=== PATIENT | female | born 1980 | race Caucasian/White ===

== ENCOUNTER → 2018-03-09 22:40 | Outpatient (CLI) | payer OTHER, SELFPAY ==
[2018-03-09 23:04] LABS: Follicle Stimulating Hormone 4.2 mIU/mL; Free T3 2.7 pg/mL (2.18-3.98); Luteinizing Hormone 5.2 mIU/mL; T4 Free Direct 1.06 ng/dL (0.76-1.46); Thyroid Stim Hormone (TSH) 1.25 uIU/mL (0.358-3.74)
[2018-03-11 10:23] LABS: Thyroid Peroxidase AB 6 IU/mL (0-34)
== END ==
PROVIDERS: Referring Provider Nurse Practitioner; Visit Provider Nurse Practitioner
DX: R00.2 Palpitations (principal); R63.4 Abnormal weight loss; F41.9 Anxiety disorder, unspecified; N92.1 Excessive and frequent menstruation with irregular cycle
CPT/HCPCS: 83001; 83002; 84439; 84443; 84481; 86376

== ENCOUNTER → 2018-05-12 00:29 | Outpatient (CLI) | payer OTHER, SELFPAY ==
[2018-05-12 19:43] VITALS: BMI 18.7
--- OUTSIDE RECORDS SUMMARY | 2018-07-17 20:40 | XMS RPT_ITS ---
:1980 Author Organization OHIP Care Team Providers Name Role Phone Roger Pegueroa [employer] MACHINE TENDER-C Attending Unavailable Roger Pegueroa [employer]ING MACHINE TENDER-C Referring Unavailable Josh Fernandez Attending Unavailable Sudhir, Luanne [employer] H[employer]MING MACHINE TENDER-C Referring Unavailable Peguero, Luanne [employer] H[employer]ING MACHINE TENDER-C Attending Unavailable Peguero, Luanne [employer] HAT [employer]ING MACHINE TENDER-C Referring Unavailable Dr. Chapin Cespedes Admitting Unavailable Dr. Chapin Cespedes Attending Unavailable *SELF, REFERRED Referring Unavailable Peguero, Ms. Luanne L Primary Care Unavailable Dr. Chapin Cespedes Admitting Unavailable Dr. Chapin Cespedes Attending Unavailable UNKNOWN, PCP Referring Unavailable Peguero, Ms. Luanne L Primary Care Unavailable Dr. Chapin Cespedes Admitting Unavailable Dr. Chapin Cespedes Attending Unavailable Dr. Chapin Cespedes Referring Unavailable Peguero, Ms. Luanne L Primary Care Unavailable Dr. Chapin Cespedes Attending Unavailable Dr. Chapin Cespedes Referring Unavailable Peguero, Ms. Luanne L Primary Care Unavailable Dr. Chapin Cespedes Admitting Unavailable Dr. Chapin Cespedes Attending Unavailable Dr. Chapin Cespedes Referring Unavailable Peguero, Ms. Luanne L Primary Care Unavailable Dr. Jamar Lee Admitting Unavailable Dr. Jamar Leed Attending Unavailable Rubina, Dr. Samson Referring Unavailable Peguero, Ms. Luanne L Primary Care Unavailable Sherry, Dr. Bal Benedict Attending Unavailable UNKNOWN, PCP Referring Unavailable Peguero, Ms. Luanne L Primary Care Unavailable Alin, Dr. Jamar Hatfield Attending Unavailable Alin, Dr. Jamar Hatfield Referring Unavailable Peguero, Ms. Luanne L Primary Care Unavailable Jemima, Dr. Henrique Hargrove Attending Unavailable *SELF, REFERRED Referring Unavailable Peguero, Ms. Luanne L Primary Care Unavailable Alin, Dr. Jamar Hatfield Attending Unavailable Sleik, Dr. Jamar Hatfield Referring Unavailable Peguero, Ms. Luanne L Primary Care Unavailable Alin, Dr. Jamar Hatfield Attending Unavailable Peguero, Ms. Luanne L Primary Care Unavailable PROBLEMS PROBLEMS DATE TYPE CONDITION / CODE ATTENDING STATUS SOURCE 05/13/2018 Unknown R31.9 - Hematuria, Peguero, Active [place] unspecified / Luanne [employer] T[employer] Community R31.9(ICD-10) Hospital Repository 03/10/2018 Unknown R00.2 - Peguero, Active [place] Palpitations / Luanne [employer]INE TENDER-[employer] Community R00.2(ICD-10) Hospital Repository 03/10/2018 Unknown R63.4 - Abnormal Peguero, Active [place] weight loss / Luanne [employer]INE T[employer] Community R63.4(ICD-10) Hospital Repository 03/10/2018 Unknown F41.9 - Anxiety Peguero, Active [place] disorder, Luanne [employer] MACHINE TENDER-C Community unspecified / Hospital F41.9(ICD-10) Repository 03/10/2018 Unknown N92.1 - Excessive Peguero, Active [place] and frequent Luanne [employer] M[employer]INE TENDER-C Community menstruation with Hospital irregular cycle / Repository N92.1(ICD-10) 02/03/2018 Final diagnosis Tachycardia, Dr. Jada Lee [place] (discharge) unspecified / Jamar Hatfield [facility] R00.0(ICD-10) Repository 01/28/2018 Final diagnosis Palpitations / [place], Dr. Duenas Replaced By [facility] (discharge) R00.2(ICD-10) [facility] Repository 06/16/2017 Active Palpitations / NA Active [place] R00.2(ICD-10) Clinic Other [place] Repository PROCEDURES PROCEDURES No Procedure Records FoundRESULTS RESULTS OFFICE VISIT Observed: 05/12/2018 Status: F Source: [place] 8:47 PM [facility] REPOSITORY [facility] [address] [place] [address] OFFICE VISIT Date of Service: 05/12/18 MR#: [id number] Acct: [id number] Name: ACACIA ALVARENGA Rep #: [id number] : 1980 Provider: JACINTO Peguero Age/Sex: 38/F Location: [facility] Status: Signed Intake Vital Signs05/12/18 Height 5 ft 6 in 05/12/18 Weight: 116 lb Intake Visit Reasons: BLOOD IN URINE Allergies amoxicillin Allergy (Severe, Verified 04/25/18 11:19) rash hives progesterone Allergy (Intermediate, Verified 03/09/18 17:00) rash Medications escitalopram 20 mg tablet 20 mg PO DAILY #30 tab 03/09/18 [Rx Confirmed 03/09/18] ciprofloxacin 500 mg tablet 500 mg PO BID #14 tab 04/25/18 [Rx Confirmed 04/25/18] propranolol 40 mg tablet 40 mg PO BID #60 tab 04/25/18 [Rx Confirmed 04/25/18] sulfamethoxazole 800 mg-trimethoprim 160 mg tablet 1 tab PO BID 10 Days #20 tab 05/12/18 [Rx] tamsulosin 0.4 mg capsule 0.4 mg PO DAILY #30 cap 05/12/18 [Rx] PFSH Medical History Metrorrhagia (Chronic) Anxiety disorder (Chronic) Palpitations (Acute) Menses, irregular (Acute) chronic ear wax (Acute) Family History Grandfather CAD (coronary artery disease) Grandmother Breast cancer Diabetes Aunt CAD (coronary artery disease) Other Anxiety Heart disease High cholesterol Hypertension Thyroid disorder Social History Smoking Status: Never smoker HPI HPI (General) HPI HPI: ACACIA ALVARENGA, is a 38 F who presents to the office today for urgency frequency and jermaine blood in her urine starting today at work . We have treated her about 2 weeks ago for a UTI and she c/o the Cipro did not help still has it. So we called in another antibiotic of Keflex. this still did not help She c/o had a menstrual cycle that was a gusher that is very unusual and then it finished abruptly . Today at work just started urinating like pink lemonade. she Guzzled 20 0z of water before her arrival here.She also states has been getting up 2 times a night to urinate and in the morning having severe pain across her abd. She is tender in the suprapubic area without CVA tenderness ROS Genitourinary: Positive for burning urination, painful urination, difficulty urinating, urinary frequency, Frequent nighttime urination/ nocturia, abnormal periods and heavy periods Musc Musculoskeletal: Positive for back pain (lower back pain) Exam Const Constitutional: Yes cooperative, Yes healthy appearing Orientation: Yes alert and awake Resp Effort AND Inspection: Yes normal respiratory effort Auscultation: Yes clear to auscultation bilaterally Cardio Palpitation: Yes normal PMI Rate: Yes regular rate Rhythm: Yes regular rhythm GI Inspection: Yes normal to inspection Auscultation: Yes normal bowel sounds Palpation: Yes soft, guarding (suprapubic area) and tender Skin General: no rashes or lesions noted Lesions: Yes no lesions Extrem General: Yes normal to inspection Neuro General: Yes alert Psych Appearance: Positive grossly normal Mood: Positive congruent mood Affect: Positive normal affect Assessment AND Plan Problems 1. Kidney stone N20.0 2. Frequency of urination R35.0 3. Hematuria, unspecified type R31.9 Patient Instructions TAke the antibiotics till gone push the fluids Get the x-ray done KUB ALAN Take the flomax once a day for 30 days or till we make a diagnosis Will call with the results Orders Orders: Coding Level of Care Code Off vis,est,level 3 Diagnoses Kidney stone N20.0 Frequency of urination R35.0 Hematuria, unspecified type R31.9 Hematuria type: unspecified type 05/12/182046 <Electronically signed by Luanne CALIX> Date Luanne CALIX CC: Observed: 05/12/2018 Status: F Source: [place] EDMOND, URINE 8:00 PM [facility] REPOSITORY Urine Culture There are no CLSI standards for interpretation of this Drug/Organism combination. ORGANISM 1: Lactobacillus species Wallace Count 25,000-50,000 Performed By: #### M100.0650 #### [facility] [address] [place], [address] OFFICE VISIT Observed: 04/28/2018 Status: F Source: [place] 12:45 PM [facility] REPOSITORY [facility] [address] [place] [address] OFFICE VISIT Date of Service: 04/25/18 MR#: [id number] Acct: [id number] Name: ACACIA ALVARENGA Rep #: [id number] : 1980 Provider: JACINTO Peguero Age/Sex: 38/F Location: [facility] Status: Signed Intake Vital Signs04/25/18 Height 5 ft 6 in 04/25/18 Weight: 114 lb Intake Visit Reasons: BLADDER INFECTION Accompanied by: self Allergies amoxicillin Allergy (Severe, Verified 04/25/18 11:19) rash hives progesterone Allergy (Intermediate, Verified 03/09/18 17:00) rash Medications escitalopram 20 mg tablet 20 mg PO DAILY #30 tab 03/09/18 [Rx Confirmed 03/09/18] ciprofloxacin 500 mg tablet 500 mg PO BID #14 tab 04/25/18 [Rx Confirmed 04/25/18] propranolol 40 mg tablet 40 mg PO BID #60 tab 04/25/18 [Rx Confirmed 04/25/18] PFSH Medical History Metrorrhagia (Chronic) Anxiety disorder (Chronic) Palpitations (Acute) Menses, irregular (Acute) chronic ear wax (Acute) Family History Grandfather CAD (coronary artery disease) Grandmother Breast cancer Diabetes Aunt CAD (coronary artery disease) Other Anxiety Heart disease High cholesterol Hypertension Thyroid disorder Social History Smoking Status: Never smoker HPI HPI (General) HPI HPI: ACACIA ALVARENGA, is a 38 F who presents to the office today for FREQUENCY AND PRESSURE WITH URINATION . Also wants the propanol re-ordered the 40 bid is working great very happy . not having the palpitations any more and helping with her anxiety. ROS Genitourinary: Positive for urinary frequency, urinary urgency and painful urination (more pressure) Exam Const Constitutional: Yes cooperative, Yes healthy appearing Orientation: Yes alert and awake Resp Effort AND Inspection: Yes normal respiratory effort Auscultation: Yes clear to auscultation bilaterally Cardio Palpitation: Yes normal PMI Rate: Yes regular rate Rhythm: Yes regular rhythm GI Inspection: Yes normal to inspection Auscultation: Yes normal bowel sounds Percussion: Yes normal to percussion Palpation: Yes soft, no hepatosplenomegaly and tender (suprapubic pressure) Skin General: no rashes or lesions noted Lesions: Yes no lesions Extrem General: Yes normal to inspection Neuro General: Yes alert Psych Appearance: Positive grossly normal Mood: Positive congruent mood Affect: Positive normal affect Results [facility] Office Urine Color Roula Last Edit by FIFI Lainez on 04/25/18 11:31 Assessment AND Plan Problems 1. Cystitis N30.90 2. Frequency of urination R35.0 3. Breast cancer screening by mammogram Z12.31 4. Palpitations R00.2 Patient Instructions Take the antibiotics till gone Push the fluids and follow up as needed Continue the propranolol for the anxiety and the palpitations Orders Orders: Medications New: Refilled: Discontinued: Coding Level of Care Code Off vis,est,level 3 Diagnoses Cystitis N30.90 Frequency of urination R35.0 Breast cancer screening by mammogram Z12.31 Palpitations R00.2 04/28/18 1245 <Electronically signed by Luanne CALIX> Date Luanne CALIX CC: OFFICE VISIT Observed: 03/10/2018 Status: F Source: [place] 1:30 PM [facility] After [facility] [address] [place] [address] OFFICE VISIT Date of Service: 03/09/18 MR#: [id number] Acct: [id number] Name: ACACIA ALVARENGA Rep #: [id number] : 1980 Provider: JACINTO Peguero Age/Sex: 37/F Location: [facility] Status: Signed Intake Vital Signs03/09/18 Height 5 ft 6 in 03/09/18 Weight: 118 lb Intake Visit Reasons: RX REFILL/ CHANGE Allergies progesterone Allergy (Intermediate, Verified 03/09/18 17:00) rash Medications alprazolam 0.5 mg tablet 0.5 mg PO .COMPLEX 08/18/17 [History Confirmed 08/18/17] escitalopram 20 mg tablet 20 mg PO DAILY #30 tab 03/09/18 [Rx Confirmed 03/09/18] propranolol 40 mg tablet 40 mg PO BID #60 tab 03/09/18 [Rx Confirmed 03/09/18] PFSH Medical History Metrorrhagia (Chronic) Anxiety disorder (Chronic) Palpitations (Acute) Menses, irregular (Acute) chronic ear wax (Acute) Family History Grandfather CAD (coronary artery disease) Grandmother Breast cancer Diabetes Aunt CAD (coronary artery disease) Other Anxiety Heart disease High cholesterol Hypertension Thyroid disorder Social History Smoking Status: Never smoker HPI HPI (General) HPI HPI: ACACIA ALVARENGA, is a 37 F who presents to the office today for continued palpitation even though on her halter monitor showed many pac in [address]. [address] told her the pills are not working and to wean off . He told her lots of people have this and get used to it basically . But it really bothers her and she cannot function on the days it is out of control. Saw Dr Villarreal about her hormones because the palpitations are definitely worse near her menses that are getting worse also. He wants her on hormone pills but she broke out in a rash from the progesterone had a biopsy done at [facility] and she told her to get off of them. He disagrees and states not the hormones causing the rash. She is very fustreated and not sure what to do suggested trying another beta bloker to see if helps and get some hormone labs and recheck her thyroid. She c/o losing weight but she does suffer from anxiety. ROS Const Constitutional: No anorexia, body ache, chills, excessive sweating, fatigue, fever(s), frequent falls, headache(s), decreased energy, malaise, night sweats, snoring, weakness, weight change, sleep problems, abnormal sleep pattern, change in appetite or other Eyes Eyes: No blurry vision, change in vision, double vision, discharge, dry eyes, bulging eyes, floaters, visual disturbances, eye pain, light sensitivity, spots in vision, tunnel vision or other ENT ENT: No headache(s), abnormal hearing, ear pain, ear discharge, ear pressure, hearing loss, tinnitus, dizziness/vertigo, balance problems, nosebleed/epistaxis, nasal congestion, nasal obstruction, nose pain, sinus pressure, sinus pain, nasal discharge, post nasal drip, facial pain, dental pain, dry mouth, difficulty swallowing, bad breath, hoarseness, lip swelling, mouth lesions, mouth pain, neck pain, sore throat, tongue swelling, throat swelling or other Resp Respiratory: No snoring, cough, change in phlegm color, chest congestion, excessive phlegm production, hemoptysis, pain on inspiration, shortness of breath, pain with cough, stridor, wheezing or other Cardio Cardiology: Positive for palpitations; no excessive sweating, chest pain at rest, chest pain with exertion, leg pain with exertion, shortness of breath, dyspnea on exertion, generalized swelling, irregular heart rhythm, lightheadedness, orthopnea, radiating jaw, neck or arm pain, fast heart rate, slow heart rate or other Gastro GI: No other, No Difficulty Swallowing, No abdominal pain, No belching, No bloating, No change in bowel habits, No change in stool character, No coffee ground emesis, No constipation, No cramping, No diarrhea, No heartburn, No feeling full early, No excessive flatus, No incontinent of stools, No Vomiting blood/hematemesis, No Blood in stool, No loose stools, No Black,tarry stools, No nausea/dyspepsia, No pain with swallowing, No vomiting, No hemorrhoids, No rectal pain Genitourinary: No urinary frequency, difficulty urinating, burning urination, painful urination, urinary urgency or blood in urine Musc Musculoskeletal: No neck pain, abnormal walking, joint pain, back pain, deformity, joint swelling, limited range of motion, loss of height, muscle cramps, muscle weakness, decreased muscle mass, body aches, numbness, radiating pain into limb, stiffness, tingling or other Skin Skin: No acne, hair loss, change in hair, nail changes, boil, change in skin color, dry skin, redness, excessive hair growth, yellowing of the skin, lesions, itching, rash, skin pain, skin ulcer, sores, skin swelling, wounds or other Breast Breast: No other Neuro Neurology: No frequent falls, headache(s), weakness, visual disturbances, abnormal hearing, abnormal walking, numbness, tingling, abnormal movements, abnormal speech, behavioral changes, confusion, unsteady gait/balance, dizziness, lack of coordination, loss of vision, memory loss, restless legs, fainting, tremor(s) or other Psych Psychiatric: No abnormal sleep pattern, No change in appetite, No behavioral changes, No confusion, No memory loss, No lack of enjoyment, Positive for anxiety, No depression, No difficulty concentrating, No hopelessness, No irritability, No mood swings, No panic attacks, No paranoia, No Thoughts of harming yourself/Others, No hallucinations, No other Endo Endo: No excessive sweating, No fatigue, No other Aller/Imm Allergy/Immunologic: No lip swelling, tongue swelling, throat swelling, wheezing or itchy eyes Exam Const Constitutional: Yes cooperative, Yes healthy appearing Orientation: Yes alert, awake and oriented x3 HENMT Head: Yes normocephalic Ear: Yes hearing grossly normal bilaterally Neck Neck: normal visual inspection Thyroid: thyroid normal Eyes General: Yes appearance normal, both eyes and all related structures Chest Chest palpation AND inspection: Yes normal inspection of the chest Resp Effort AND Inspection: No stridor Auscultation: Yes clear to auscultation bilaterally Cardio Palpitation: Yes normal PMI Rate: Yes regular rate Rhythm: Yes regular rhythm GI Inspection: Yes normal to inspection Auscultation: Yes normal bowel sounds Rectal Exam: No hemorrhoids Musc Cervical Spine: Yes cervical ROM normal Thoracic/Lumbar Spine: Yes thoracic and lumbar spine normal to inspection Skin General: no rashes or lesions noted Lesions: Yes no lesions Extrem General: Yes normal to inspection Neuro General: Yes alert and oriented x3 Motor: No weakness Psych Appearance: Positive grossly normal Mood: Positive congruent mood Affect: Positive normal affect Assessment AND Plan Problems 1. Metrorrhagia N92.1 2. Generalized anxiety disorder F41.1 3. Palpitations R00.2 Patient Instructions Take the new medication as prescribed follow up in 1 month to see if makes a difference. Will call with the labs results Try increasing the Lexapro to 20 mg then go back to the 10 mg when not on the menses Orders Orders: Medications New: Discontinued: Coding Level of Care Code Off vis,est,level 3 Diagnoses Metrorrhagia N92.1 Generalized anxiety disorder F41.1 Anxiety disorder type: generalized anxiety disorder Palpitations R00.2 03/10/18 1330 <Electronically signed by Luanne CALIX> Date Luanne CALIX CC: FREE T3 Collected: 03/09/2018 Status: F Source: [place] 5:30 PM [facility] REPOSITORY TYPE CODE TESTS RESULT OUT OF RANGE REFERENCE UNITS LAB [id number] 2.18-3.98 pg/mL Normal FREE T3 2.7 Performed By: #### L501.25036, L501.9520, L506.0400, L3100.5055 #### [facility] [address] [place], [place], [id number] THYROID STIM HORMONE Collected: 03/09/2018 Status: F Source: G[place] (TSH) 5:30 PM [facility] REPOSITORY TYPE CODE TESTS RESULT OUT OF RANGE REFERENCE UNITS LAB [id number] 0.358-3.74 uIU/mL Normal TSH 1.25 Performed By: #### L501.77036, L501.9520, L506.0400, L3100.5055 #### [facility] [address] [place], [place], [id number] T4 FREE DIRECT Collected: 03/09/2018 Status: F Source: [place] 5:30 PM [facility] REPOSITORY TYPE CODE TESTS RESULT OUT OF RANGE REFERENCE UNITS LAB L506.0400 0.76-1.46 ng/dL Normal T4 FREE 1.06 DIRECT Performed By: #### L501.31490, L501.9520, L506.0400, L3100.5055 #### [facility] [address] [place], [address] FSH AND LH Collected: 03/09/2018 Status: F Source: [place] 5:30 PM [facility] REPOSITORY TYPE CODE TESTS RESULT OUT OF RANGE REFERENCE UNITS LAB L3100.5125 mIU/mL Normal FSH 4.2 Result Comment: NORMAL REFERENCE RANGES FEMALE FOLLICULAR 2.3 - 12.6 mIU/mL MID-CYCLE PEAK 5.2 - 17.5 mIU/mL LUTEAL 1.7 - 12.9 mIU/mL POST-MENOPAUSAL ON MHT 5.9 - 72.8 mIU/mL NOT ON MHT 12.7 - 132.2 mlU/mL MALE 0.7 - 10.8 mIU/mL NEW TEST METHOD AND REFERENCE RANGES SEPTEMBER 16, 2011 LAB L3100.5170 mIU/mL Normal 5.2 LH Result Comment: NORMAL REFERENCE RANGES FEMALE FOLLICULAR 1.9 - 26.2 mIU/mL MID-CYCLE PEAK 22.8 - 76.1 mIU/mL LUTEAL 0.6 - 16.6 mIU/mL POST-MENOPAUSAL ON MHT 1.1 - 52.4 mIU/mL NOT ON MHT 8.6 - 61.8 mIU/mL MALE 1.2 - 10.6 mIU/mL NEW TEST METHOD AND REFERENCE RANGES SEPTEMBER 16, 2011 Performed By: #### L501.06108, L501.9520, L506.0400, L3100.5055 #### [facility] [address] [place], [place], [address] THYROID PEROXIDASE AB Collected: 03/09/2018 Status: F Source: [place] 5:30 PM [facility] REPOSITORY TYPE CODE TESTS RESULT OUT OF RANGE REFERENCE UNITS LAB L3300.6900 0-34 IU/mL Normal TPO AB 6 [id number] Result Comment: Performed at: - [facility] [address] [id number] Solutions Operator: Yoandy August PhD, Phone: [phone] Performed By: #### L3300.6900 #### [facility] (refer to report for specific site) refer to report for address and phone number OFFICE VISIT (FAMILY Observed: 02/04/2018 Status: UNK Source: [facility]) 2:08 PM [facility] REPOSITORY Chief Complaint discuss anxiety. History of Present Illness has had anxiety for a long time has been seeing cardiology for palpitations' has been having for mos had for a long time but were worse so went in no treatment except beta kash ' was on for extra beats he thinks she does not need it he would like her to be off med but thinks she needs to get her anxiety treated has waking spells w heart racj=ing and feeling anxious' is generall more nervous worries has had panic in the daytime and not in a few yrs because can stop them all bw was good and heart testing was good gets more before cycle dr lee thinks related to hormone imbalance occ bothers her at bedtime had ekg and bw in past not on hormones sees dr villarreal saw dr barajas for drug eruption for progesterone for menses has long spotting before and after a 5 days of menses on a mg, b complex, probiotic , mvi Review of Systems Eyes: no blurred vision and no eyesight problems. ENT: no hearing loss, no nasal congestion, no nasal discharge, no hoarseness and no sore throat. Cardiovascular: no chest pain, no intermittent leg claudication, no lower extremity edema, no palpitations and no syncope. Respiratory: no cough, no shortness of breath during exertion, no shortness of breath at rest and no wheezing. Gastrointestinal: no abdominal pain, no blood in stools, no constipation, no diarrhea, no nausea and no vomiting. Integumentary: no new skin lesions and no rashes. Active Problems Anxiety (300.00) (F41.9) Heart palpitations (785.1) (R00.2) Past Medical History No pertinent past medical history Surgical History Denied: History Of Prior Surgery Family History Family history of hypertension (V17.49) (Z82.49) Family history of hypertension (V17.49) (Z82.49) Family history of malignant neoplasm (V16.9) (Z80.9) Family history of diabetes mellitus (V18.0) (Z83.3) Family history of hypertension (V17.49) (Z82.49) Family history of malignant neoplasm (V16.9) (Z80.9) Family history of diabetes mellitus (V18.0) (Z83.3) Family history of hypertension (V17.49) (Z82.49) Family history of malignant neoplasm (V16.9) (Z80.9) Social History Denied: History of Caffeine use Currently working Never smoker Non-smoker (V49.89) (Z78.9) Occasional alcohol use Allergies Penicillins Recorded By: Kena Salgado; 10/01/2017 8:46:57 AM Progesterone Micronized POWD Recorded By: Ayse Barton; 02/04/2018 2:04:51 PM Current Meds Metoprolol Succinate ER 50 MG Oral Tablet Extended Release 24 Hour; TAKE ONE TABLET BY MOUTH EVERY DAY; Therapy: [id number] to Recorded Rx By: Sudhir; Dispense: 30 Days ; #:30 TB24; Refill: 0; GERALDINE = N; Record; Last Updated By: Kena Salgado; 10/01/2017 8:45:53 AM Progesterone Micronized 200 MG Oral Capsule; Take 1 tablet daily for 10 days each month beginning 2 weeks after the; Therapy: [id number] to Recorded Rx By: Roman; Dispense: 30 Days ; #:10 CAPS; Refill: 0; GERALDINE = N; Record; Last Updated By: Kena Salgado; 10/01/2017 8:45:53 AM Vitals Vital Signs Recorded: 04Feb2018 01:26PM Dvkahcozxnt31.4 F Heart Rate95 Tijbjirv597 Mfhlizlvv57 Height5 ft 7 in Htqwfy150 lb BMI Knbcyxmzye22.32 BSA Calculated1.61 Physical Exam Constitutional: Alert and in no acute distress. Well developed, well nourished. Eyes: Normal external exam. Pupils were equal in size, round, reactive to light (PERRL) with normal accommodation and extraocular movements intact (EOMI). Ears, Nose, Mouth, and Throat: External inspection of ears and nose: Normal. Hearing: Normal. Nasal mucosa, septum, and turbinates: Normal. Lips, teeth, and gums: Normal. Oropharynx: Normal. Neck: No neck mass was observed. Supple. Thyroid not enlarged and there were no palpable thyroid nodules. Cardiovascular: Heart rate and rhythm were normal, normal S1 and S2, no gallops, no murmurs and no pericardial rub. Pedal pulses: Normal. No peripheral edema. Pulmonary: No respiratory distress. Clear bilateral breath sounds. Abdomen: Soft nontender; no abdominal mass palpated. No organomegaly. Musculoskeletal: No joint swelling seen, normal movements of all extremities. Range of motion: Normal. Muscle strength/tone: Normal. Skin: Normal skin color and pigmentation, normal skin turgor, and no rash. Psychiatric: Judgment and insight: Intact. Mood and affect: Normal. Lymphatic: No cervical lymphadenopathy. Diagnoses/Problems Anxiety (300.00) (F41.9) Orders Anxiety Start: DULoxetine HCl - 30 MG Oral Capsule Delayed Release Particles; take 1 capsule by mouth once daily Rx By: Ayse Barton; Dispense: 0 Days ; #:30 Capsule Delayed Release Particles; Refill: 1;For: Anxiety; GERALDINE = N; Sent To: [facility] Unlinked Stop: Progesterone Micronized 200 MG Oral Capsule Rx By: Roman; Dispense: 30 Days ; #:10 CAPS; Refill: 0; GERALDINE = N; Record; Last Updated By: Ayse Barton; 10/01/2017 8:45:53 AM Provider Impressions call w issues discussed diet and exercise call w issues End of Encounter Meds DULoxetine HCl - 30 MG Oral Capsule Delayed Release Particles; take 1 capsule by mouth once daily; Therapy: 04Feb2018 to (Last Rx:04Feb2018) Ordered Metoprolol Succinate ER 50 MG Oral Tablet Extended Release 24 Hour; TAKE ONE TABLET BY MOUTH EVERY DAY; Therapy: [id number] to Recorded Signatures Electronically signed by : Ayse Barton MD; Feb 04 2018 2:08PM EST (Author) OFFICE VISIT Observed: 02/03/2018 Status: UNK Source: [facility] (CARDIOLOGY) 11:00 AM HOSPITALS REPOSITORY Chief Complaint tachycardia. patient is here today to review her echocardiogram and zio History of Present Illness 37 years old female patient with tachycardia syndrome and palpitation she comes in for follow-up today. Monitor she wore for 9 hours shows multiple PVCs and PACs Echocardiography was completely normal Patient is very sensitive to these extra heartbeat Maintain on beta blockers There are no spiritual/cultural practices/values/needs that are important to know Initial Fall Risk Screening: ACACIA has not fallen in the last 6 months. Domestic Violence Screen: Does not feel threatened or abused physically, emotionally or sexually. Do you feel UNSAFE? The patient feels safe in the home. Depression/Suicide Screening: During the past 2 weeks, the patient has not felt down, depressed or hopeless. During the past 2 weeks, the patient has not felt little interest or pleasure in doing things. She has no thoughts of harming self. She has not had thoughts of harming others. Procedure or Sedation Areas: patient has not had alcohol, recreational drugs, or prescription drugs for non-medical reasons this morning. Nutrition Screening: In the past month, there was not a day when I or anyone in my family went hungry because there was not enough food. Patient Education: The patient denies that they or the person with them has problems with hearing, speaking, seeing, moving around or learning The patient is comfortable filling out medical forms. Tobacco Screening: ACACIA does not use tobacco. Active Problems Anxiety (300.00) (F41.9) Heart palpitations (785.1) (R00.2) Surgical History Denied: History Of Prior Surgery Past Medical History No pertinent past medical history Current Meds Metoprolol Succinate ER 50 MG Oral Tablet Extended Release 24 Hour; TAKE ONE TABLET BY MOUTH EVERY DAY; Therapy: 02Nov2016 to Recorded Rx By: Sudhir; Dispense: 30 Days ; #:30 TB24; Refill: 0; GERALDINE = N; Record; Last Updated By: Kena Salgado; 10/01/2017 8:45:53 AM Mirtazapine 15 MG Oral Tablet; TAKE ONE TABLET BY MOUTH NIGHT; Therapy: 02Nov2016 to Recorded Rx By: Sudhir; Dispense: 30 Days ; #:30 TABS; Refill: 0; GERALDINE = N; Record; Last Updated By: Kena Salgado; 10/01/2017 8:45:53 AM Progesterone Micronized 200 MG Oral Capsule; Take 1 tablet daily for 10 days each month beginning 2 weeks after the; Therapy: 28Jul2017 to Recorded Rx By: Roman; Dispense: 30 Days ; #:10 CAPS; Refill: 0; GERALDINE = N; Record; Last Updated By: Kena Salgado; 10/01/2017 8:45:53 AM Allergies Penicillins Recorded By: Kena Salgado; 10/01/2017 8:46:57 AM Family History Family history of hypertension (V17.49) (Z82.49) Family history of hypertension (V17.49) (Z82.49) Family history of malignant neoplasm (V16.9) (Z80.9) Family history of diabetes mellitus (V18.0) (Z83.3) Family history of hypertension (V17.49) (Z82.49) Family history of malignant neoplasm (V16.9) (Z80.9) Family history of diabetes mellitus (V18.0) (Z83.3) Family history of hypertension (V17.49) (Z82.49) Family history of malignant neoplasm (V16.9) (Z80.9) Social History Non-smoker (V49.89) (Z78.9) Occasional alcohol use Review of Systems Constitutional: not feeling tired. Eyes: no eyesight problems. ENT: no hearing loss and no nosebleeds. Cardiovascular: as noted in HPI and no intermittent leg claudication. Respiratory: no chronic cough and no shortness of breath. Gastrointestinal: no change in bowel habits and no blood in stools. Genitourinary: no urinary frequency. Skin: no skin rashes. Neurological: no seizures and no frequent falls. Psychiatric: no depression and not suicidal. Vitals Vital Signs Recorded: 03Feb2018 10:27AM Heart Appi356 [id number], RUE, Sitting Eqgcxjjnz52, RUE, Sitting Height5 ft 7 in Wctkbp695 lb BMI Prqzcatjhs88.17 BSA Calculated1.6 Physical Exam Constitutional: alert and in no acute distress. Eyes: no erythema, swelling or discharge from the eye . Neck: neck is supple, symmetric, trachea midline, no masses and no thyromegaly . Pulmonary: no increased work of breathing or signs of respiratory distress and lungs clear to auscultation. Cardiovascular: carotid pulses 2+ bilaterally with no bruit , JVP was normal, no thrills , regular rhythm, normal S1 and S2, no murmurs , pedal pulses 2+ bilaterally and no edema . Abdomen: abdomen non-tender, no masses and no hepatomegaly . Skin: skin warm and dry, normal skin turgor . Psychiatric judgment and insight is normal and oriented to person, place and time . Patient Instructions 37 years old with palpitations PACs and PVCs medical therapy is recommended I recommend her to see her family doctor is to manage her anxiety Stress management will help overall Follow-up in 6 months. End of Encounter Meds Metoprolol Succinate ER 50 MG Oral Tablet Extended Release 24 Hour; TAKE ONE TABLET BY MOUTH EVERY DAY; Therapy: [id number] to Recorded Mirtazapine 15 MG Oral Tablet; TAKE ONE TABLET BY MOUTH NIGHT; Therapy: 02Nov2016 to Recorded Progesterone Micronized 200 MG Oral Capsule; Take 1 tablet daily for 10 days each month beginning 2 weeks after the; Therapy: 28Jul2017 to Recorded Signatures Electronically signed by : Jamar Lee MD; Feb 03 2018 11:00AM EST (Author) ECHOCARDIOGRAM Observed: 01/28/2018 Status: F Source: [facility] 8:01 AM [facility], [address], [address], [place], [place] [address] and TRANSTHORACIC ECHOCARDIOGRAM REPORT Patient Name: ACACIA ALVARENGA Reading Physician: [id number] Jamar Lee MD Study Date: 01/28/2018 Referring Physician: Jamar Lee MD MRN/PID: [id number] PCP: Accession/Order#: [id number] Department Location: [facility] Date of : 1980 Fellow: Gender: F Nurse: Admit Date: Insulation Packer: Alejandra Shea [facility] Admission Status: Outpatient Additional Staff: Height: 170.18 cm CC Report to: Weight: 52.62 kg Study Type: Echocardiogram BSA: 1.60 m2 Blood Pressure: 122 /79 mmHg Diagnosis/ICD: R00.2 Palpitations Indication: Palpitations Procedure/CPT: Echo Complete w/Full Doppler ([id number]) Patient History: Pertinent History: Palpitations. Tachycardia,Anxiety. Study Detail: The following Echo studies were performed: 2D, M-Mode, Doppler and color flow. Technically challenging study due to body habitus and poor acoustic windows. PHYSICIAN INTERPRETATION: Left Ventricle: The left ventricular systolic function is normal. The left ventricular cavity size is normal. Spectral Doppler shows a normal pattern of left ventricular diastolic filling. Left Atrium: The left atrium is normal in size. Right Ventricle: The right ventricle is normal in size. There is normal right ventricular global systolic function. Right Atrium: The right atrium is normal in size. Aortic Valve: The aortic valve appears structurally normal. There is no evidence of aortic valve regurgitation. The peak instantaneous gradient of the aortic valve is 8.9 mmHg. Mitral Valve: The mitral valve is normal in structure. There is no evidence of mitral valve regurgitation. Tricuspid Valve: The tricuspid valve is structurally normal. No evidence of tricuspid regurgitation. Pulmonic Valve: The pulmonic valve is structurally normal. There is no indication of pulmonic valve regurgitation. Pericardium: There is no pericardial effusion noted. Aorta: The aortic root is normal. CONCLUSIONS: 1. The left ventricular systolic function is normal. 2. Normal RV size and function. QUANTITATIVE DATA SUMMARY: 2D MEASUREMENTS: Normal Ranges: IVSd: 0.70 cm (0.6-1.1cm) LVPWd: 0.70 cm (0.6-1.1cm) LVIDd: 3.60 cm (3.9-5.9cm) LVIDs: 2.00 cm LV % FS 44.4 % LA VOLUME: Normal Ranges: LA Vol A4C: 23.0 ml (22+/-6mL/m2) LA Vol A2C: 33.4 ml LA Vol BP: 29.9 ml LA Vol Index A4C: 14.3ml/m2 LA Vol Index A2C: 20.8 ml/m2 LA Vol Index BP: 18.6 ml/m2 LA Area A4C: 10.0 cm2 LA Area A2C: 13.0 cm2 LA Major Delphi A4C: 3.7 cm LA Major Delphi A2C: 4.3 cm LA Volume Index: 16.0 ml/m2 M-MODE MEASUREMENTS: Normal Ranges: Ao Root: 2.30 cm (2.0-3.7cm) AORTA MEASUREMENTS: Normal Ranges: Ao Arch: 2.20 cm (2.0-3.6cm) LV SYSTOLIC FUNCTION BY 2D PLANIMETRY (MOD): Normal Ranges: EF-A4C View: 60.0 % (>55%) EF-A2C View: 74.3 % EF-Biplane: 67.3 % LV DIASTOLIC FUNCTION: Normal Ranges: MV Peak E: 0.79 m/s (0.7-1.2 m/s) MV Peak A: 0.68 m/s (0.42-0.7 m/s) E/A Ratio: 1.16 (1.0-2.2) MV lateral e' 0.18 m/s MV medial e' 0.13 m/s MV A Dur: 102.00 msec E/e' Ratio: 4.40 (<8.0) PulmV Sys Andrzej: 80.50 cm/s PulmV Gregg Andrzej: 64.70 cm/s PulmV S/D Andrzej: 1.20 PulmV A Revs Andrzej: 52.80 cm/s PulmV A Revs Dur: 113.00 msec MITRAL VALVE: Normal Ranges: MV DT: 144 msec (150-240msec) AORTIC VALVE: Normal Ranges: AoV Vmax: 1.49 m/s (<1.7m/s) AoV Peak P.9 mmHg (<20mmHg) LVOT Max Andrzej: 1.20 m/s (<1.1m/s) LVOT VTI: 20.50 cm LVOT Diameter: 2.00 cm (1.8-2.4cm) AoV Area,Vmax: 2.53 cm2 (2.5-4.5cm2) RIGHT VENTRICLE: RV 1 2.3 cm RV 2 1.6 cm RV 3 4.5 cm TAPSE: 22.0 mm RV s' 0.15 m/s PULMONIC VALVE: Normal Ranges: PV Accel Time: 120 msec (>120ms) PV Max Andrzej: 1.4 m/s (0.6-0.9m/s) PV Max P.6 mmHg Pulmonary Veins: PulmV A Revs Dur: 113.00 msec PulmV A Revs Andrzej: 52.80 cm/s PulmV Gregg Andrzej: 64.70 cm/s PulmV S/D Andrzej: 1.20 PulmV Sys Andrzej: 80.50 cm/s [id number] Jamar Lee MD Electronically signed on 01/28/2018 at 4:07:13 PM Final TSH Collected: 01/13/2018 Status: F Source: [facility] 11:15 [facility] REPOSITORY TYPE CODE TESTS RESULT OUT OF RANGE REFERENCE UNITS LAB TSH2(LOINC) 0.44 - 3.98 mIU/L TSH 0.98 Result Comment: TSH testing is performed using different testing methodology at [facility] than at other [facility]. Direct result comparisons should only be made within the same method. . Patients receiving more than 5 mg/day of biotin may have interference in test results. A sample should be taken no sooner than eight hours after previous dose. Contact [phone] for additional information. Performed By: #### TSH2 #### [facility] [address] [place] [address] BASIC METABOLIC PANEL Collected: 01/13/2018 Status: F Source: [facility]I 11:15 [facility] REPOSITORY TYPE CODE TESTS RESULT OUT OF REFERENCE UNITS RANGE LAB GLU(LOINC) 74 - 99 mg/dL GLUCOSE High 146 LAB SOD(LOINC) 136 - 145 mmol/L SODIUM 139 LAB K(LOINC) 3.5 - 5.3 mmol/L POTASSIUM 4.3 LAB CHLOR(LOIN 98 - 107 mmol/L C) CHLORIDE 106 LAB BIC(LOINC) 21 - 32 mmol/L BICARBONATE 25 LAB ANGAP(LOIN 10 - 20 mmol/L C) ANION GAP 12 LAB UREA(LOINC 6 - 23 mg/dL ) UREA NITROGEN 14 LAB CREA(LOINC 0.50 - 1.05 mg/dL ) CREATININE 0.57 LAB GFRFN(LOIN >60 mL/min/1.7 C) 3m2 GFR-NON AM. >60 LAB GFRAA(LOIN >60 mL/min/1.7 C) 3m2 GFR- AM. >60 Result Comment: CALCULATIONS OF ESTIMATED GFR ARE PERFORMED USING THE MDRD STUDY EQUATION FOR THE IDMS-TRACEABLE CREATININE METHODS. CLIN CHEM 2007;53:766-72 LAB CA(LOINC) 8.6 - 10.6 mg/dL CALCIUM 9.2 Performed By: #### BMP #### [facility] [address] [place] [address] OFFICE VISIT Observed: 01/13/2018 Status: UNK Source: [facility] (CARDIOLOGY) 10:57 AM HOSPITALS REPOSITORY Chief Complaint palpitation. patient here for a consult for palpitations History of Present Illness 37 years old female patient previously healthy with no prior cardiac history in the past she comes in complaining of palpitation and fluttering heart She had certain episode where she feels her heart is racing fast particularly around her cycle No prior cardiac history before and no prior cardiac testing EKG shows sinus tachycardia heart rate of 116 No angina No signs or symptoms of congestive heart failure There are no spiritual/cultural practices/values/needs that are important to know Initial Fall Risk Screening: ACACIA has not fallen in the last 6 months. Advance directives: Living Will: No living will on file. Domestic Violence Screen: Does not feel threatened or abused physically, emotionally or sexually. Do you feel UNSAFE? The patient feels safe in the home. Depression/Suicide Screening: During the past 2 weeks, the patient has not felt down, depressed or hopeless. During the past 2 weeks, the patient has not felt little interest or pleasure in doing things. She has no thoughts of harming self. She has not had thoughts of harming others. Procedure or Sedation Areas: patient has not had alcohol, recreational drugs, or prescription drugs for non-medical reasons this morning. Nutrition Screening: In the past month, there was not a day when I or anyone in my family went hungry because there was not enough food. Patient Education: The patient denies that they or the person with them has problems with hearing, speaking, seeing, moving around or learning The patient is comfortable filling out medical forms. Tobacco Screening: ACACIA does not use tobacco. Active Problems Anxiety (300.00) (F41.9) Heart palpitations (785.1) (R00.2) Surgical History Denied: History Of Prior Surgery Past Medical History No pertinent past medical history Current Meds Metoprolol Succinate ER 50 MG Oral Tablet Extended Release 24 Hour; TAKE ONE TABLET BY MOUTH EVERY DAY; Therapy: 02Nov2016 to Recorded Rx By: Sudhir; Dispense: 30 Days ; #:30 TB24; Refill: 0; GERALDINE = N; Record; Last Updated By: Kena Salgado; 10/01/2017 8:45:53 AM Mirtazapine 15 MG Oral Tablet; TAKE ONE TABLET BY MOUTH NIGHT; Therapy: 02Nov2016 to Recorded Rx By: Sudhir; Dispense: 30 Days ; #:30 TABS; Refill: 0; GERALDINE = N; Record; Last Updated By: Kena Salgado; 10/01/2017 8:45:53 AM Progesterone Micronized 200 MG Oral Capsule; Take 1 tablet daily for 10 days each month beginning 2 weeks after the; Therapy: 28Jul2017 to Recorded Rx By: Roman; Dispense: 30 Days ; #:10 CAPS; Refill: 0; GERALDINE = N; Record; Last Updated By: Kena Salgado; 10/01/2017 8:45:53 AM Allergies Penicillins Recorded By: Kena Salgado; 10/01/2017 8:46:57 AM Family History Family history of hypertension (V17.49) (Z82.49) Family history of hypertension (V17.49) (Z82.49) Family history of malignant neoplasm (V16.9) (Z80.9) Family history of diabetes mellitus (V18.0) (Z83.3) Family history of hypertension (V17.49) (Z82.49) Family history of malignant neoplasm (V16.9) (Z80.9) Family history of diabetes mellitus (V18.0) (Z83.3) Family history of hypertension (V17.49) (Z82.49) Family history of malignant neoplasm (V16.9) (Z80.9) Social History Non-smoker (V49.89) (Z78.9) Occasional alcohol use Review of Systems Constitutional: not feeling tired. Eyes: no eyesight problems. ENT: no hearing loss and no nosebleeds. Cardiovascular: palpitations and fast heart rate, but as noted in HPI and no intermittent leg claudication. Respiratory: no chronic cough and no shortness of breath. Gastrointestinal: no change in bowel habits and no blood in stools. Genitourinary: no urinary frequency. Skin: no skin rashes. Neurological: no seizures and no frequent falls. Psychiatric: no depression and not suicidal. Vitals Vital Signs Recorded: 13Jan2018 10:04AM Heart Cwtn859 Hhylcirv110, RUE, Sitting Zppwfunuu23, RUE, Sitting Height5 ft 7 in Qimtix808 lb BMI Iiwmbqkvyw14.17 BSA Calculated1.6 Physical Exam Constitutional: alert and in no acute distress. Eyes: no erythema, swelling or discharge from the eye . Neck: neck is supple, symmetric, trachea midline, no masses and no thyromegaly . Pulmonary: no increased work of breathing or signs of respiratory distress and lungs clear to auscultation. Cardiovascular: carotid pulses 2+ bilaterally with no bruit , JVP was normal, no thrills , regular rhythm, normal S1 and S2, no murmurs , pedal pulses 2+ bilaterally and no edema . Abdomen: abdomen non-tender, no masses and no hepatomegaly . Skin: skin warm and dry, normal skin turgor . Psychiatric judgment and insight is normal and oriented to person, place and time . Diagnoses/Problems Heart palpitations (785.1) (R00.2) Orders Heart palpitations Basic Metabolic Panel; Source:Blood (BLD); Status:Active; Requested for:82Bhp0077; Perform:Lab Services - Lab To Draw (Blood Test); Due:71Kvb1780;Ordered; For:Heart palpitations; Ordered By:Jamar Lee; Echocardiogram; Status:Hold For - Scheduling; Requested for:83Ayo3829; Perform:[facility] ([place]); Due:06Sha6216;Ordered; For:Heart palpitations; Ordered By:Jamar Lee; Holter Extended Wear 9-14 Day Monitor; Status:Active; Requested for:75Hqf3395; Perform:[facility] (Non-Interfaced); Due:52Uvb3314;Ordered; For:Heart palpitations; Ordered By:Jamar Lee; Holter Extended Wear 9-14 Day Monitor; Status:Active; Requested for:08Blg0909; Perform:[facility] (Non-Interfaced); Due:35Ypt6429;Ordered; For:Heart palpitations; Ordered By:Jamar Lee; IO EKG Electrocardiogram- 12 Lead; Status:Complete - Retrospective Authorization; Done: 27Lag6314 Perform:In Office; Due:37Lka1364; Last Updated By:Angelina Holt; 01/13/2018 10:43:27 AM;Ordered; For:Heart palpitations; Ordered By:Jamar Lee; TSH - Thyroid Stimulating Hormone, Serum; Source:Blood ([facility]); Status:Active; Requested for:72Qtx0934; Perform:Lab Services - Lab To Draw (Blood Test); Due:30Xra1067;Ordered; For:Heart palpitations; Ordered By:Jamar Lee; Follow-up visit in 3 weeks Outpatient Follow-up Status: Hold For - Scheduling Requested for: 13Jan2018 Ordered Stat;For: Heart palpitations; Ordered By: Jamar Lee Performed: Due: 63Nql5208 Patient Instructions 37 years old with sinus tachycardia and palpitation I schedule her to have her TSH level checked I schedule for echocardiogram to rule out any structural heart disease We'll schedule to come back for continuous monitoring for 2 weeks Recommend to start taking a beta blockers in the morning Recommended to the family doctors to address anxiety follow up in 3 weeks. End of Encounter Meds Metoprolol Succinate ER 50 MG Oral Tablet Extended Release 24 Hour; TAKE ONE TABLET BY MOUTH EVERY DAY; Therapy: 41Omh5228 to Recorded Mirtazapine 15 MG Oral Tablet; TAKE ONE TABLET BY MOUTH NIGHT; Therapy: 53Vqb3835 to Recorded Progesterone Micronized 200 MG Oral Capsule; Take 1 tablet daily for 10 days each month beginning 2 weeks after the; Therapy: 28Jul2017 to Recorded Signatures Electronically signed by : Jamar Lee MD; Jan 13 2018 10:57AM EST (Author) OFFICE VISIT Observed: 11/12/2017 Status: UNK Source: [facility] (CARDIOLOGY) 12:23 PM HOSPITALS REPOSITORY Chief Complaint ACACIA ALVARENGA is being seen for a cardiovascular evaluation. History of Present Illness Ms. Alvarenga is a delightful 37-year-old woman who visits us at the [facility] for a follow-up visit. She has perimenstrual palpitations that are severely symptomatic. She has been on beta-adrenoceptor a ntagonist therapy for approximately 6 years, without much relief. Please refer to my clinic note from her initial appointment. Per the patient, she didn't experience palpitations during her vacation [place] in [place]. She also carries a diagnosis of generalized anxiety. There is no history of associated chest pain, dyspnea on exertion, nausea, diaphoresis, or syncope. Her past medical history is as mentioned below. Active Problems Anxiety (300.00) (F41.9) Heart palpitations (785.1) (R00.2) Surgical History Denied: History Of Prior Surgery Past Medical History No pertinent past medical history Current Meds Metoprolol Succinate ER 50 MG Oral Tablet Extended Release 24 Hour; TAKE ONE TABLET BY MOUTH EVERY DAY; Therapy: 61Ayv3389 to Recorded Rx By: Suhdir; Dispense: 30 Days ; #:30 TB24; Refill: 0; GERALDINE = N; Record; Last Updated By: Kena Salgado; 10/01/2017 8:45:53 AM Mirtazapine 15 MG Oral Tablet; TAKE ONE TABLET BY MOUTH NIGHT; Therapy: 06Vcf8318 to Recorded Rx By: Sudhir; Dispense: 30 Days ; #:30 TABS; Refill: 0; GERALDINE = N; Record; Last Updated By: Kena Salgado; 10/01/2017 8:45:53 AM Progesterone Micronized 200 MG Oral Capsule; Take 1 tablet daily for 10 days each month beginning 2 weeks after the; Therapy: 28Jul2017 to Recorded Rx By: Roman; Dispense: 30 Days ; #:10 CAPS; Refill: 0; GERALDINE = N; Record; Last Updated By: Kena Salgado; 10/01/2017 8:45:53 AM Allergies Penicillins Recorded By: Kena Salgado; 10/01/2017 8:46:57 AM Family History Family history of hypertension (V17.49) (Z82.49) Family history of hypertension (V17.49) (Z82.49) Family history of malignant neoplasm (V16.9) (Z80.9) Family history of diabetes mellitus (V18.0) (Z83.3) Family history of hypertension (V17.49) (Z82.49) Family history of malignant neoplasm (V16.9) (Z80.9) Family history of diabetes mellitus (V18.0) (Z83.3) Family history of hypertension (V17.49) (Z82.49) Family history of malignant neoplasm (V16.9) (Z80.9) Social History Non-smoker (V49.89) (Z78.9) Occasional alcohol use Review of Systems A 14-point review of systems, other than that mentioned in the history of present illness, was reviewed and is not pertinent. Results/Data No pertinent new data were reviewed during this visit. Diagnoses/Problems Heart palpitations (785.1) (R00.2) Impressions Ms. Alvarenga requires remote heart rhythm monitoring prior to initiation of menstrual cycle. She may have underlying paroxysmal supraventricular tachyarrhythmia that may be captured on remote heart rhythm m onitoring. We have scheduled an appointment to have the MyPatch installed in the first week in November 2017. Once I receive the rhythm analysis report, I will follow-up with her with the test results. I did not conduct a physical exam during this visit, and am not charging her for this visit. Chapin Cespedes MD, [facility], [facility], [facility] Clinical Long Term[employer] over (Cardiology) Division of Cardiovascular Medicine, Department of Medicine [facility] [employer] Structural Heart Rasper Machine Operator [facility] Email: [email or web address] Facsimile: Patient Instructions We will have the MyPatch (remote heart rhythm monitoring) installed in the first week in November 2017. I will follow-up with you once the test results become available. As we discussed, I am not charging you for this visit. Chapin Cespedes MD, [facility]UL, [facility]HA, [facility] Clinical [employer] Term[employer] over (Cardiology) Division of Cardiovascular Medicine, Department of Medicine [facility] [employer] Structural Heart Rasper Machine Operator [facility] Email: [email or web address] Facsimile: . End of Encounter Meds Metoprolol Succinate ER 50 MG Oral Tablet Extended Release 24 Hour; TAKE ONE TABLET BY MOUTH EVERY DAY; Therapy: [id number] to Recorded Mirtazapine 15 MG Oral Tablet; TAKE ONE TABLET BY MOUTH NIGHT; Therapy: [id number] to Recorded Progesterone Micronized 200 MG Oral Capsule; Take 1 tablet daily for 10 days each month beginning 2 weeks after the; Therapy: [id number] to Recorded Signatures Electronically signed by : Chapin Cespedes MD; Nov 12 2017 12:23PM EST (Author) OFFICE VISIT Observed: 10/01/2017 Status: UNK Source: [place] 2:47 PM HOSPITALS REPOSITORY Chief Complaint ACACIA ALVARENGA is being seen for palpitations. History of Present Illness Ms. Alvarenga is a delightful 37-year-old woman who visits us at the [facility] for further evaluation and management of palpitations. She has been experiencing palpitations for more than two decades, and has been carrying a diagnosis of generalized anxiety disorder. Over the past six months, there has been an increase in the duration and intensity of palpitations. The paroxysms last for seconds to pema fidencio, and sherine spontaneously. There is also history of cessation of these paroxysms with cold towel. In addition, there is an association of worsening with menstruation (premenstrual phase is better con trolled compared with symptoms during menstrual bleeding; she also reports feeling fabulous during , a progesterone-dominant state). There is no history of associated shortness of breath, nausea, diaphoresis, or syncope. Her past medical history is as mentioned below. There are no spiritual/cultural practices/values/needs that are important to know Initial Fall Risk Screening: ACACIA has not fallen in the last 6 months. ACACIA does not have a fear of falling. She does not need assistance with sitting, standing or walking. Does not need assistance walking in her home. She does not n eed assistance in an unfamiliar setting. The patient is not using an assistive device. Review of Systems A 14-point review of systems, other than that mentioned in the history of present illness, was reviewed and is not pertinent. Active Problems Anxiety (300.00) (F41.9) Heart palpitations (785.1) (R00.2) Past Medical History No pertinent past medical history Surgical History Denied: History Of Prior Surgery Social History Non-smoker (V49.89) (Z78.9) Occasional alcohol use Allergies Penicillins Recorded By: Kena Salgado; 10/01/2017 8:46:57 AM Current Meds Metoprolol Succinate ER 50 MG Oral Tablet Extended Release 24 Hour; TAKE ONE TABLET BY MOUTH EVERY DAY; Therapy: [id number] to Recorded Rx By: Sudhir; Dispense: 30 Days ; #:30 TB24; Refill: 0; GERALDINE = N; Record; Last Updated By: Kena Salgado; 10/01/2017 8:45:53 AM Mirtazapine 15 MG Oral Tablet; TAKE ONE TABLET BY MOUTH NIGHT; Therapy: [id number] to Recorded Rx By: Sudhir; Dispense: 30 Days ; #:30 TABS; Refill: 0; GERALDINE = N; Record; Last Updated By: Kena Salgado; 10/01/2017 8:45:53 AM Progesterone Micronized 200 MG Oral Capsule; Take 1 tablet daily for 10 days each month beginning 2 weeks after the; Therapy: 28Jul2017 to Recorded Rx By: Roman; Dispense: 30 Days ; #:10 CAPS; Refill: 0; GERALDINE = N; Record; Last Updated By: Kena Salgado; 10/01/2017 8:45:53 AM Physical Exam General: Sitting up comfortably in chair; in no apparent distress. HEENT: Normocephalic; atraumatic. Eyes: Anicteric. Neck: Supple; no thyromegaly; normal jugular venous pressure. Respiratory: Bilateral air entry equal. Cardiovascular: Normal S1, S2; no murmurs auscultated. Abdomen: Nondistended; nontender. Extremities: No peripheral edema present. Neurological: Oriented to time, place, and person; nonfocal. Psychiatric: Normal affect. Results/Data A twelve-lead electrocardiogram in the office today has demonstrated normal sinus rhythm. Provider Impressions Ms. Alvarenga may have underlying supraventricular tachyarrhythmias that have gone undiagnosed for the past couple decades (under the rubric of generalized anxiety disorder). She also describes what is likel y to be a significant premature ventricular contraction (PVC) burden. She is currently on metoprolol, although she does not report any symptom relief from it. She is going on vacation day after tomorrow , and our plan is to initiate remote heart rhythm monitoring after she gets back from vacation. Once we establish a diagnosis of supraventricular tachyarrhythmia(s), she will merit a referral to an student financial aid manager. Chapin Cespedes MD, FACP, FACC, [facility] Clinical Long Termchange over (Cardiology) Division of Cardiovascular Medicine, Department of Medicine [facility] Medicine Structural Heart Rasper Machine Operator [facility] Email: [email or web address] Facsimile: Patient Discussion/Summary We will initiate a 14-day remote heart rhythm monitoring to diagnose underlying cardiac dysrhythmias. Enjoy your vacation! Chapin Cespedes MD, FACP, FACC, [facility] Clinical Long Termchange over (Cardiology) Division of Cardiovascular Medicine, Department of Medicine [facility] Medicine Structural Heart Rasper Machine Operator [facility] Email: [email or web address] Facsimile: . End of Encounter Meds Metoprolol Succinate ER 50 MG Oral Tablet Extended Release 24 Hour; TAKE ONE TABLET BY MOUTH EVERY DAY; Therapy: [id number] to Recorded Mirtazapine 15 MG Oral Tablet; TAKE ONE TABLET BY MOUTH NIGHT; Therapy: [id number] to Recorded Progesterone Micronized 200 MG Oral Capsule; Take 1 tablet daily for 10 days each month beginning 2 weeks after the; Therapy: [id number] to Recorded Signatures Electronically signed by : Chapin Cespedes MD; Oct 01 2017 2:47PM EST (Author) OFFICE VISIT Observed: 10/01/2017 Status: UNK Source: [place] (CARDIOLOGY) 1:55 PM HOSPITALS REPOSITORY No report was sent ED NOTE Observed: 06/16/2017 Status: COMPLETED Source: [place] 1:39 PM CLINIC OTHER CAMPUS REPOSITORY HNO ID: [id number] Author: Treasure (Rn) Reuben Aviles RN Service: (none) Author Type: Registered Nurse Type: ED Notes Filed: 06/16/2017 1:40 PM Note Text: Anxiety increased with medications and thoughts of discharge DISCHARGE INSTRUCTIONS using teach back: Patient receptive to education,reviewed medications and percautions, f/u, reasons to return,prescription times .......0 reason s to return CBC AND DIFFERENTIAL Collected: 06/16/2017 Status: F Source: [place] 12:31 PM CLINIC OTHER CAMPUS REPOSITORY TYPE CODE TESTS RESULT OUT OF REFERENCE UNITS RANGE LAB WBC 3.70-11.00 k/uL WBC 10.15 LAB RBC 3.90-5.20 m/uL RBC 4.07 LAB HGB 11.5-15.5 g/dL Hemoglobin 12.8 LAB HCT 36.0-46.0 % Hematocrit 38.1 LAB MCV 80.0-100.0 fL MCV 93.6 LAB MCH 26.0-34.0 pG MCH 31.4 LAB MCHC 30.5-36.0 g/dL MCHC 33.6 LAB RDWCV 11.5-15.0 % RDW-CV 12.6 LAB PLTCT 150-400 k/uL Platelet Count 227 LAB MPV 9.0-12.7 fL MPV 11.2 LAB ANEUT % Neut% 87.3 LAB AANEUT 1.45-7.50 k/uL Abs Neut High 8.86 LAB ALYMP % Lymph% 8.2 LAB AALYMP 1.00-4.00 k/uL Low Abs Lymph 0.83 LAB AMONO % Crook% 4.3 LAB AAMONO <0.87 k/uL Abs Crook 0.44 LAB AEOS % Eosin% 0.0 LAB AAEOS <0.46 k/uL Abs Eosin <0.03 LAB ABASO % Baso% 0.2 LAB AABASO <0.11 k/uL Abs Baso <0.03 Performed By: #### CBCDIF, CMP #### [facility] [address] [place] [address] COMP METABOLIC PANEL Collected: 06/16/2017 Status: F Source: [place] 12:[address] [facility] OTHER [place] REPOSITORY TYPE CODE TESTS RESULT OUT OF REFERENCE UNITS RANGE LAB TP 6.3-8.0 g/dL Protein, Total 7.5 LAB ALB 3.9-4.9 g/dL Albumin 4.6 LAB CA 8.5-10.2 mg/dL Calcium, Total 9.7 LAB TBIL 0.2-1.3 mg/dL Bilirubin, Total 0.3 LAB ALKP 32-117 U/L Alkaline Phosphatase 55 LAB AST 13-35 U/L AST 14 LAB GLU 74-99 mg/dL Glucose High 138 Result Comment: The [place] Diabetes Association (ADA) provides guidance for cutoff values for fasting glucose and random glucose. The ADA defines fasting as no caloric intake for at least 8 hours. Fas ting plasma glucose results between 100 to 125 mg/dL indicate increased risk for diabetes (prediabetes). Fasting plasma glucose results greater than or equal to 126 mg/dL meet the criteria for diagnosis of diabetes. In the absence of unequivocal hyperglycemia, results should be confirmed by repeat testing. In a patient with classic symptoms of hyperglycemia or hyperglycemic crisis, random plasma glucose results greater than or equal to 200 mg/dL meet the criteria for diagnosis of diabetes. Reference: Standards of Medical Care in Diabetes 2016, [place] Diabetes Association. Diabetes Care. 2016.39(Suppl 1). LAB BUN 7-21 mg/dL BUN 13 LAB CRET 0.58-0.96 mg/dL Creatinine 0.59 LAB NA 136-144 mmol/L Sodium 139 LAB K 3.7-5.1 mmol/L Potassium Low 3.2 LAB CL 97-105 mmol/L Chloride 102 LAB CO2 22-30 mmol/L CO2 23 LAB AGAP 9-18 mmol/L Anion Gap 14 LAB ALT 7-38 U/L ALT 20 LAB GFRAA eGFR- Amer. >60 LAB GFRNAA . eGFR-All Other Races >60 Result Comment: eGFR (Estimated GFR) Units of measure: mL/min/1.73 meters squared eGFR is derived from the reexpressed MDRD Study equation using the following parameters: serum creatinine, age, gender and race. The creatinine assay has been calibrated to be traceable to IDMS. An eGFR <60 mL/min/1.73m2 for >3 months is consistent with chronic kidney disease. Refer to KDOQI guidelines for clinical interpretation. In patients with unstable renal function, e.g. those with acute kidney injury, the eGFR may not accurately reflect actual GFR. Performed By: #### CBCDIF, CMP #### [facility] [address] [facility] [phone] TROPONIN T Collected: 06/16/2017 Status: F Source: [place] 12:31 PM CLINIC OTHER CAMPUS REPOSITORY TYPE CODE TESTS RESULT OUT OF REFERENCE UNITS RANGE LAB TROPT 0.000-0.029 ng/mL Troponin T <0.010 Performed By: #### ALISSA #### [facility] [address] [facility] [phone] CK, TOTAL AND CKMB Collected: 06/16/2017 Status: F Source: [place] 12:31 PM CLINIC OTHER CAMPUS REPOSITORY TYPE CODE TESTS RESULT OUT OF REFERENCE UNITS RANGE LAB CK 42-196 U/L Low 34 CK LAB MB <4.3 ng/mL MB <1.0 LAB CKMBRI 0.0-4.0 % CK CK MB MB % not % reported with CK <100 U/L. Performed By: #### CKCKMB #### [facility] [address] [facility] [phone] TSH Collected: 06/16/2017 Status: F Source: [place] 12:31 [facility] OTHER CAMPUS REPOSITORY TYPE CODE TESTS RESULT OUT OF RANGE REFERENCE UNITS LAB TSH 0.400-5.500 uU/mL TSH 1.850 Result Comment: If the patient is , TSH reference range varies by gestational period: First Trimester 0.100-2.500 uU/mL Second Trimester 0.200-3.000 uU/mL Third Trimester 0.300-3.000 uU/mL References: 1. Arceo L, Christine M, Hi EK, et al. Management of Thyroid Dysfunction during and : An Endocrine Society Clinical Practice Guideline. J Clin Endocrinol Metab, 2012:97:0247-3756. 2. Kyle ZUNIGA. Overview of thyroid disease in . UpToDate. 2016. Accessed on October 13, 2015. Performed By: #### TSH #### [facility] [address] [facility] [phone] ED PROV NOTE Observed: 06/16/2017 Status: COMPLETED Source: [place] 12:[address] [facility] OTHER CAMPUS REPOSITORY HNO ID: [id number] Author: Maryam Layne (Pa) Service: (none) Author Type: Physician Web Marketing Coordinator Type: ED Provider Notes Filed: 06/16/2017 1:32 PM Note Text: ED Provider Note Patient Name: Acacia Alvarenga SERVICE DATE: 06/16/17 History Patient presents with: Palpitations: heart racing, hx anxiety attcks in past. sts this has been constant since fri HPI Comments: 37-year-old female, with a history of anxiety, presents for palpitations. She states for the last 3 days she has been having increased amount of palpitations and anxiety. She has had a long-standing history with anxiety Dr. Peguero in regards to this and is compliant with her Remeron. However for the last 2-3 days she states she feels like her anxiety is been out of control. She is feeling palpitations. No chest pain or shortness of breath. She did start her menstrual cycle this morning and it does seem to get worse when she is starting her period. No SI or HI History provided by: Patient and parent PAST MEDICAL HISTORY Diagnosis Date - Psychiatric disorder anxiety Social History Social History Main Topics - Smoking status: Never Smoker - Smokeless tobacco: Never Used - Alcohol use Yes Comment: occ - Drug use: None - Sexual activity: Not Asked ALLERGIES Allergen Reactions - Amoxicillin Hives Review of Systems Constitutional: Negative for chills and fever. HENT: Negative. Respiratory: Negative for cough and shortness of breath. Cardiovascular: Negative for chest pain. Gastrointestinal: Negative for diarrhea, nausea and vomiting. Musculoskeletal: Negative for back pain. Skin: Negative for rash. Neurological: Negative for dizziness, light-headedness and headaches. Psychiatric/Behavioral: Negative for self-injury and suicidal ideas. The patient is nervous/anxious. Physical Exam Pulse 107 Resp 16 Wt 125 lb (56.7kg) SpO2 99% LMP 05/16/2017 Physical Exam Constitutional: She is oriented to person, place, and time. She appears well-developed and well-nourished. No distress. Well appearing in NAD HENT: Head: Normocephalic and atraumatic. Eyes: Conjunctivae are normal. Neck: Normal range of motion. Neck supple. Cardiovascular: Normal rate, regular rhythm and normal heart sounds. Pulmonary/Chest: Effort normal and breath sounds normal. No respiratory distress. She has no wheezes. She has no rales. Abdominal: Soft. Bowel sounds are normal. There is no tenderness. Musculoskeletal: Normal range of motion. Neurological: She is alert and oriented to person, place, and time. Skin: No rash noted. Psychiatric: She has a normal mood and affect. Her speech is normal and behavior is normal. Her mood appears not anxious. She does not exhibit a depressed mood. She expresses no homicidal and no suicidal ideation. Nursing note and vitals reviewed. Diagnostic Testing ED Labs Ordered and Reviewed CBC + DIFF - Abnormal; Notable for the following: Result Value Ref Range Abs Neut (ANC) 8.86 (*) 1.45 - 7.50 k/uL Abs Lymph 0.83 (*) 1.00 - 4.00 k/uL All other components within normal limits COMP METABOLIC PANEL - Abnormal; Notable for the following: Glucose 138 (*) 74 - 99 mg/dL Potassium 3.2 (*) 3.7 - 5.1 mmol/L All other components within normal limits CK TOTAL AND CK-MB - Abnormal; Notable for the following: CK 34 (*) 42 - 196 U/L All other components within normal limits TSH BLD TROPONIN T EKG: Sinus tachycardia Procedures-none Medical Decision Making / ED Course 12:20 PM Patient presents with anxiety that has gotten worse over the last 3 days. She has a history of anxiety. She is on Remeron. She admits that she's been feeling palpitations but no chest pain. On exam she is in no distress. She is mildly tachycardic on arrival at 107. Workup initiated: Labs and EKG 1:26 PM Patient's workup with hypokalemia 0.2. Given oral supplementation. While in the room her heart rate is in the 90s and I offered to repeat her EKG she was tachycardic on her initial EKG however she states even the thought of repeating her EKG makes her extremely anxious. She is actually taking off the surveillance system monitor and time telling her about her workup. She states I'm so anxious and he did get out of here. I was able to calm her down a little bit and speak with her and her mother about importance of follow-up with cardiology as well as seeing her PCP for perhaps being on some type of medication specifically for anxiety or trying psychotherapy. She is amenable to this. She'll return for any acute change or worsening ED Course Encounter Diagnosis ICD-10-CM 1. Heart palpitations R00.2 Plan The Patient was DISCHARGED: Counseled patient and mother regarding lab results AND suspected diagnosis AND need for follow-up. Discharged home with verbal and written instructions. They were instructed to return as needed for persistent or worsening symptoms or any new concerns. Condition at time of disposition: stable SIGNATURE: CY Dejesus (Pa) 06/16/17 1332 ED NOTE Observed: 06/16/2017 Status: COMPLETED Source: [place] 12:[address] [facility] OTHER CAMPUS REPOSITORY HNO ID: [id number] Author: Treasure (Rn) Reuben Aviles RN Service: (none) Author Type: Registered Nurse Type: ED Notes Filed: 06/16/2017 12:06 PM Note Text: Anxiety since fri pm, no reason, has had issues since age 9. Not missed any medication doses ALLERGIES ALLERGIES DATE TYPE / CODE NAME / CODE REACTION SEVERITY SOURCE 04/25/2018 Drug amoxicillin/P20635 rash hives [place] Allergy/416 3675(RXNORM) [facility] 984542([facility] ED CT) Repository 03/09/2018 Drug progesterone/F0060 Rash [place] Sabrina Allergy/416 84295(RXNORM) [facility] 716170([facility] ED CT) Repository 08/18/2017 Drug No Known Unknown [place] Allergy/416 Allergies/P0587068 [facility] 947830([place] [address](RXNORM) [facility] ED CT) Repository 06/16/2017 DRUG AMOXICILLIN HIVES [facility] INGREDI/419 Other [place] 539599([facility] ED CT) ENCOUNTERS ENCOUNTERS ADMIT/DISCHARGE ACCOUNT ADMITTING ENCOUNTER LOCATION SOURCE NUMBER CLASS 05/12/2018 [id number] [facility] ing:LABSPEC Repository 03/26/2018 [id number] Ambulatory [facility] Repository 03/09/2018 [id number] [facility] ing:LABSPEC Repository 02/03/2018 [id number] Ambulatory [facility] Repository 01/28/2018 [id number] Ambulatory [facility] Repository 01/21/2018 [id number] Ambulatory [facility] Repository 01/13/2018 [id number] Ambulatory [facility] Repository 01/13/[id number] Alin [facility] Repository 11/12/2017 [id number] Ambulatory [facility] Repository 11/12/[id number] Rubina [facility] Repository 11/12/[id number] Rubina [facility] Repository 10/01/[id number] [facility] Repository 10/01/[id number] Rub[facility] Repository 08/20/2017 [id number] Ambulatory BMSBuilding:Mayda Bennett MS.[facility] Repository 06/16/2017/06/16/19 [id number] Emergency [address] Other [place] Repository PAYERS PAYERS ENCOUNTER GUARANTOR PAYER SUBSCRIBER SOURCE 05/12/2018 ACACIA SHORTO7424 Primary OSIEL LETODOB: Sabrina SALEEM Insurance:MEDICAL [id number] [facility] [address]Hts: (330) Number: Repository [phone] () [id number] Date:[id number] [address], [place] [address]TP: 05/12/2018 Secondary NOT GIVENUNK [place] Insurance:SELF PAY [facility] Number: Effective Repository Date:2018-05-12 03/26/2018 ACACIA Silva LETODOB: Primary OSIEL Jh ALVARENGA [place] [id number] Insurance:Medical SRDOB: [facility] [id number] Repository [place], [place] Number: [address] [place] [address]Kog: (330) [id number] [place], [place] [phone] () Date:Plan Name:Health [facility] 03/26/2018 Secondary ACACIA L LETODOB: University Insurance:Medical [id number] [place] [address] Repository Number: [place], [place] [id number] [address]Hti: (330) Date:Plan Name:Health [phone] () 03/09/2018 ACACIA SHORTO7424 Primary OSIEL Bennett [place] Insurance:MEDICAL LETODOB: [facility] [id number] Hospital [address]Bda: (330) Number: Repository [id number] () [id number] Date:[id number] [address], [place] [address]ZR: 03/09/2018 Secondary NOT GIVENUNK [place] Insurance:SELF PAY [facility] Number: Effective Repository Date:2018-03-09 02/03/2018 ACACIA L LETODOB: Primary ACACIA L LETODOB: [place] [id number] Insurance:Medical [id number] [place] [address] Number: [place], [place] [address]Ina: (330 [id number]: () Date:Plan Name:[place] [id number] () 01/28/2018 ACACIA L LETODOB: Primary ACACIA L LETODOB: [place] [id number] Insurance:Medical [id number] [place] [address] Number: [place], [place] [address]Nfu: (330) [id number] [address]Mcm: () Date:Plan Name:[place] [id number] () 01/21/2018 ACACIA L LETODOB: Primary OSIEL Jh LYLE [place] [id number] Insurance:Medical SRDOB: [facility] [id number] [place] [address] Number: 4 [place] [address]Zrw: (330) [id number] [place], [place] [phone] () Date:Plan Name:[place] [address] 01/13/2018 ACACIA L LETODOB: Primary OSIEL Jh [facility] [id number] Insurance:Medical SRDOB: [facility] [id number] Repository [place], [place] Number: 4 [place] [address]Zvn: (330) [id number] [place], [place] [phone] (HP) Date:Plan Name:[place] [address] 01/13/2018 ACACIA SHORTDOUGLASOB: Primary [facility] [id number] Insurance:Medical SRDOB: [facility] [id number] Repository [place], [place] Number: 4 [place] [address]Toc: (330) [id number] [place], [place] [phone] (HP) Date:Plan Name:[place] [address] 11/12/2017 ACACIA SHORTDOUGLASOB: Primary [facility] [id number] Insurance:Medical SRDOB: [facility] [id number] [facility] [place] Number: 4 [place] [address]Hjz: (330) [id number] [facility] [place] [phone] (HP) Date:Plan Name:[place] [address] 11/12/2017 ACACIA HALLOB: Primary [facility] [id number] Insurance:Medical SRDOB: [facility] [id number] Repository [place], [place] Number: 4 [place] [address]Jyy: (330) [id number] [place], [place] [phone] (HP) Date:Plan Name:[place] [address] 11/12/2017 ACACIA HALLOB: Primary [facility] [id number] Insurance:Medical SRDOB: [facility] [id number] Repository [place], [place] Number: 4 [place] [address]Gdg: (330) [id number] [facility], [place] [phone] (HP) Date:Plan Name:[place] [address] 10/01/2017 ACACIA HALLOB: Primary [facility] [id number] Insurance:Medical SRDOB: [facility] [id number] Repository [place], [place] Number: 4 [place] [address]Cwv: (330 [id number] [facility], [place] [phone] (HP) Date:Plan Name:[place] [address] 10/01/2017 ACACIA HALLOB: Primary OSIEL ALVARENGA [place] [id number] Insurance:Medical SRDOB: [facility] [id number] Repository [place], [place] Number: 4 [place] [address]Mec: 330 [id number] [place], [place] [phone] () Date:Plan Name:Health [address] 08/20/2017 ACACIA SHORTO7424 Primary OSIEL Bennett [place] Insurance:MEDICAL [facility] [address]Obw: (330) Number: Repository [phone] (HP) [id number] Date:3343-43-58ZO [address] [place] [address]UK: 08/20/2017 Secondary NOT GIVENMINI Bennett Insurance:SELF PAY [facility] Number: Effective Repository Date:2017-07-28
== END ==
PROVIDERS: Referring Provider Nurse Practitioner; Visit Provider Nurse Practitioner
DX: R31.9 Hematuria, unspecified (principal)
CPT/HCPCS: 87086; 87088